=== PATIENT | male | born 1975 | race Caucasian/White ===

== ENCOUNTER 2020-10-14 18:23 | Emergency (ER) | payer SELFPAY ==
--- NOTE | 2020-10-14 19:10 | NUR ---
PATIENT CALLED TO BE TRIAGE, NO RESPONSE
--- NOTE | 2020-10-14 19:10 | NUR ---
PATIENT LEFT WITHOUT BEING SEEN BY DR. BERMUDEZ. NO FURTHER CARE PROVIDED FOR PATIENT.
--- NOTE | 2020-10-14 19:19 | NUR ---
CALLED FOR THE SECOND TIME , NO RESPONSE
--- NOTE | 2020-10-14 19:27 | NUR ---
CALLED FOR THE THIRD TIME , NO RESPONSE
== END 2020-10-14 19:10 | disposition left against medical advice (07) ==
LOC: MED 18:23
DX: Z53.21 Procedure and treatment not carried out due to patient leaving prior to being seen by health care provider (principal)